=== PATIENT | male | born 1955 | race Caucasian/White ===

== ENCOUNTER 2021-11-28 07:47 | Inpatient (IN) ==
[2021-11-28] MEDS ORDERED: levoFLOXacin 500 MG/100 ML 500 MG/100 ML BAG IVPB ONE (08:10)
[2021-11-28] MEDS ORDERED: Ringers Solution, Lactated 1,000 ML IVC SCH (08:15)
[2021-11-28] MEDS ORDERED: Albuterol 2.5 MG/3 ML NEBULIZER IH PRN (08:17)
[2021-11-28] MEDS ORDERED: Ondansetron 4 MG/2 ML VIAL IVP PRN ×2 (08:17→15:16)
[2021-11-28] MEDS ORDERED: Albuterol 2.5 MG/3 ML NEBULIZER IH ONE (08:17)
[2021-11-28 08:58] LABS: Prothrombin Time 11.3 Seconds (9.4-12.1)
[2021-11-28] MEDS ORDERED: 0.9 % Sodium Chloride 500 ML ONE (09:42)
[2021-11-28] MEDS ORDERED: Lidocaine/EPI 1:100k 1% 50 ML VIAL ONE (09:42)
[2021-11-28] MEDS ORDERED: *HR* FentaNYL (PF) 100 MCG/2 ML VIAL IVP ONE (09:58)
[2021-11-28] MEDS ORDERED: *HR* Midazolam HCl 2 MG/2 ML VIAL IVP ONE (09:58)
[2021-11-28] MEDS ORDERED: Isovue-300 50ML VIAL IVP ONE (10:22)
[2021-11-28] MEDS ORDERED: *HR* Propofol 200 MG/20 ML VIAL IVP ONE (12:02)
[2021-11-28] MEDS ORDERED: *HR* FentaNYL (PF) 100 MCG/2 ML VIAL ONE ×2 (12:02→13:30)
[2021-11-28] MEDS ORDERED: Ondansetron 4 MG/2 ML VIAL ONE (12:05)
[2021-11-28] MEDS ORDERED: Lidocaine HCL 4 ML Topical Solution (Laryng-O-Jet Kit Sterile Pak) TP ONE (12:05)
[2021-11-28] MEDS ORDERED: *HR* Rocuronium Bromide 50 MG/5 ML VIAL ONE (12:05)
[2021-11-28] MEDS ORDERED: Lidocaine -MPF 2% 2 ML VIAL ONE (12:05)
[2021-11-28] MEDS ORDERED: Ketorolac 30 MG/ML VIAL ONE (13:49)
[2021-11-28] MEDS ORDERED: Acetaminophen IV 0 MG/0 ML BAG IVPB ONE (13:49)
[2021-11-28] MEDS: *HR* HYDROmorphone PF 0.5 MG/0.5 ML SYRINGE IVP PRN ×2 (14:10→14:19)
[2021-11-28] MEDS ORDERED: *HR* HYDROmorphone (PF) 1 MG/ML SYRINGE ONE (14:30)
[2021-11-28] MEDS: *HR* HYDROmorphone (PF) 1 MG/ML SYRINGE IVP PRN ×2 (14:31→14:36)
[2021-11-28] MEDS ORDERED: Naloxone 0.4 MG/ML INJ IVP PRN (15:16)
[2021-11-28] MEDS ORDERED: *HR* HYDROcodone/Acet 5/325 mg TABLET PO PRN (15:16)
[2021-11-28] MEDS: *HR* OxyCODONE Immed Rel 5 MG TABLET PO PRN (18:23)
[2021-11-28] MEDS: risperiDONE 1 MG TABLET PO SCH (21:58)
[2021-11-29] MEDS: *HR* OxyCODONE Immed Rel 5 MG TABLET PO PRN (03:57)
[2021-11-29 08:03] LABS: Basophils % 0.1 %; Hematocrit 33.8 % (37.5-50.1); Hemoglobin 11.5 g/dL (12.9-16.9); Immature Granulocytes % 0.6 % (0-4); Lymphocytes # 1.4 K/mcL (0.6-4.6); Lymphocytes % 6.3 %; Mean Corpuscular Hemoglobin 32.8 pg (28.0-33.3); Mean Corpuscular Volume 96.3 fL (83.0-100.0); Mean Platelet Volume 10.9 fL (9.4-12.4); Monocytes # 1.5 K/mcL (0.0-1.3); Neutrophils # 18.9 K/mcL (1.6-8.9); Platelet Count 291 K/mcL (140-400); Red Blood Count 3.51 M/mcL (4.19-5.50); Red Cell Distribution Width 12.7 % (11.5-14.5); White Blood Count 21.9 K/mcL (4.3-11.1)
[2021-11-29] MEDS: Fluticasone Propionate Nasal 50 MCG/SPRAY BOTTLE NS SCH (08:12)
[2021-11-29] MEDS: risperiDONE 1 MG TABLET PO SCH ×2 (08:12→20:43)
[2021-11-29] MEDS ORDERED: 0.9 % Sodium Chloride 1,000 ML ONE (08:49)
[2021-11-29] MEDS ORDERED: Loratadine 10 MG TABLET PO SCH (09:00)
[2021-11-29 09:36] LABS: Hematocrit 30.4 % (37.5-50.1); Hemoglobin 10.2 g/dL (12.9-16.9); Mean Corpuscular HGB Conc 33.6 g/dL (31.6-35.5); Mean Corpuscular Hemoglobin 32.5 pg (28.0-33.3); Mean Corpuscular Volume 96.8 fL (83.0-100.0); Mean Platelet Volume 11.2 fL (9.4-12.4); Platelet Count 319 K/mcL (140-400); Red Blood Count 3.14 M/mcL (4.19-5.50); Red Cell Distribution Width 12.9 % (11.5-14.5); White Blood Count 24.3 K/mcL (4.3-11.1)
[2021-11-29 10:06] LABS: Alanine Aminotransferase 22 Units/L (7-52); Albumin 3.5 g/dL (3.5-5.7); Albumin/Globulin Ratio 1.6 (1.1-2.2); Alkaline Phosphatase 88 Units/L (34-104); Aspartate Amino Transferase 25 Units/L (13-39); BUN/Creatinine Ratio 13 (6-26); Bilirubin,Total 0.5 mg/dL (0.3-1.0); Blood Urea Nitrogen 15 mg/dL (8-23); Calcium 8.5 mg/dL (8.6-10.3); Carbon Dioxide 26 mEq/L (23-29); Chloride 102 mEq/L (98-107); Globulin 2.2 g/dL (2.4-3.5); Glucose 105 mg/dL (70-105); Osmolality,Calculated 285 (280-300); Potassium 4.2 mEq/L (3.5-5.1); Sodium 137 mEq/L (136-145); Total Protein 5.7 g/dL (6.4-8.9); eGFR For African Americans > 60 (> 60); eGFR For Non-African Americans > 60 (> 60)
[2021-11-29] MEDS ORDERED: Isovue-370 500 ML BOTTLE IVP ONE (10:25)
[2021-11-29 11:16] LABS: Basophils % 0.1 %; Immature Granulocytes % 0.6 % (0-4); Red Cell Distribution Width 12.9 % (11.5-14.5)
[2021-11-29 11:18] LABS: Hematocrit 26.9 % (37.5-50.1); Hemoglobin 8.7 g/dL (12.9-16.9); Lymphocytes # 2.7 K/mcL (0.6-4.6); Lymphocytes % 9.8 %; Mean Corpuscular HGB Conc 32.3 g/dL (31.6-35.5); Mean Corpuscular Hemoglobin 32.5 pg (28.0-33.3); Mean Corpuscular Volume 100.4 fL (83.0-100.0); Monocytes # 2.2 K/mcL (0.0-1.3); Platelet Count 254 K/mcL (140-400); Red Blood Count 2.68 M/mcL (4.19-5.50); Segmented Neutrophils % 81.5 %; White Blood Count 27.4 K/mcL (4.3-11.1)
[2021-11-29 11:38] LABS: Neutrophils # 22.3 K/mcL (1.6-8.9)
[2021-11-29 11:42] LABS: Platelet Estimate Normal (Normal)
[2021-11-29 11:43] LABS: Alanine Aminotransferase 17 Units/L (7-52); Albumin 2.8 g/dL (3.5-5.7); Albumin/Globulin Ratio 1.6 (1.1-2.2); Alkaline Phosphatase 71 Units/L (34-104); Aspartate Amino Transferase 18 Units/L (13-39); BUN/Creatinine Ratio 11 (6-26); Bilirubin,Direct 0.1 mg/dL (0.0-0.2); Bilirubin,Indirect 0.4 mg/dL (0.0-1.0); Bilirubin,Total 0.5 mg/dL (0.3-1.0); Blood Urea Nitrogen 17 mg/dL (8-23); Calcium 7.4 mg/dL (8.6-10.3); Carbon Dioxide 15 mEq/L (23-29); Chloride 107 mEq/L (98-107); Creatine Kinase 90 Units/L (30-223); Globulin 1.8 g/dL (2.4-3.5); Glucose 218 mg/dL (70-105); Magnesium 1.6 mg/dL (1.6-2.6); Osmolality,Calculated 294 (280-300); Phosphorous 4.1 mg/dL (2.7-4.5); Potassium 3.8 mEq/L (3.5-5.1); Sodium 138 mEq/L (136-145); Total Protein 4.6 g/dL (6.4-8.9); Troponin I < 0.03 ng/mL (< 0.04); eGFR For African Americans 52 (> 60); eGFR For Non-African Americans 43 (> 60)
[2021-11-29] MEDS ORDERED: *HR* HYDROcodone/Acet 5/325 mg TABLET PO PRN (11:47)
[2021-11-29] MEDS ORDERED: *HR* OxyCODONE Immed Rel 5 MG TABLET PO PRN (11:50)
[2021-11-29] MEDS ORDERED: *HR* LORazepam 2 MG/ML VIAL IVP ONE (11:51)
[2021-11-29] MEDS ORDERED: 0.9 % Sodium Chloride 500 ML IVC ONE (11:52)
[2021-11-29] MEDS: Acetaminophen IV 1,000 MG/100 ML BAG IVPB SCH ×2 (13:54→17:34)
[2021-11-29] MEDS: cefTRIAXone 2,000 MG in 0.9 % Sodium Chloride 20 ML IVP SCH (13:55)
[2021-11-29 14:40] LABS: Hematocrit 26.9 % (37.5-50.1); Hemoglobin 9.1 g/dL (12.9-16.9)
[2021-11-29] MEDS ORDERED: 0.9 % Sodium Chloride 500 ML IVC SCH (15:00)
[2021-11-29] MEDS: 0.9 % Sodium Chloride 1,000 ML IVC SCH (15:10)
[2021-11-29] MEDS: MetroNIDAZOLE 500 MG/100 ML 500 MG/100 ML BAG IVPB SCH (16:23)
[2021-11-29] MEDS: Pantoprazole 40 MG VIAL IVP SCH (17:34)
[2021-11-29 23:58] LABS: Hematocrit 22.8 % (37.5-50.1)
[2021-11-30 00:13] LABS: Hemoglobin 7.5 g/dL (12.9-16.9)
[2021-11-30] MEDS: 0.9 % Sodium Chloride 1,000 ML IVC SCH ×4 (00:48→23:08)
[2021-11-30] MEDS: MetroNIDAZOLE 500 MG/100 ML 500 MG/100 ML BAG IVPB SCH ×2 (00:50→10:17)
[2021-11-30] MEDS: Acetaminophen IV 1,000 MG/100 ML BAG IVPB SCH ×3 (02:00→11:56)
[2021-11-30 05:54] LABS: Basophils % 0.1 %; Hematocrit 20.9 % (37.5-50.1); Hemoglobin 6.9 g/dL (12.9-16.9); Immature Granulocytes % 0.4 % (0-4); Lymphocytes # 2.3 K/mcL (0.6-4.6); Lymphocytes % 16.1 %; Mean Corpuscular Hemoglobin 31.8 pg (28.0-33.3); Mean Corpuscular Volume 96.3 fL (83.0-100.0); Mean Platelet Volume 11.2 fL (9.4-12.4); Monocytes % 7.1 %; Neutrophils # 10.9 K/mcL (1.6-8.9); Platelet Count 212 K/mcL (140-400); Red Blood Count 2.17 M/mcL (4.19-5.50); Red Cell Distribution Width 12.9 % (11.5-14.5); Segmented Neutrophils % 76.3 %; White Blood Count 14.3 K/mcL (4.3-11.1)
[2021-11-30 06:26] LABS: BUN/Creatinine Ratio 13 (6-26); Blood Urea Nitrogen 14 mg/dL (8-23); Calcium 7.5 mg/dL (8.6-10.3); Carbon Dioxide 24 mEq/L (23-29); Chloride 109 mEq/L (98-107); Glucose 95 mg/dL (70-105); Osmolality,Calculated 290 (280-300); Potassium 3.9 mEq/L (3.5-5.1); Sodium 140 mEq/L (136-145); eGFR For African Americans > 60 (> 60); eGFR For Non-African Americans > 60 (> 60)
[2021-11-30] MEDS: Pantoprazole 40 MG VIAL IVP SCH (06:37)
[2021-11-30] MEDS: Fluticasone Propionate Nasal 50 MCG/SPRAY BOTTLE NS SCH (09:00)
[2021-11-30] MEDS: risperiDONE 1 MG TABLET PO SCH ×2 (09:27→20:39)
[2021-11-30] MEDS: cefTRIAXone 2,000 MG in 0.9 % Sodium Chloride 20 ML IVP SCH (10:17)
[2021-11-30] MEDS ORDERED: 0.9 % Sodium Chloride 250 ML ONE (11:20)
[2021-11-30] MEDS ORDERED: Lidocaine -MPF 2% 2 ML VIAL ONE (13:44)
[2021-11-30] MEDS ORDERED: *HR* Propofol 200 MG/20 ML VIAL IVP ONE (13:44)
[2021-11-30] MEDS ORDERED: *HR* HYDROcodone/Acet 5/325 mg TABLET PO PRN (14:18)
[2021-11-30 20:01] LABS: Hematocrit 22.4 % (37.5-50.1); Hemoglobin 7.6 g/dL (12.9-16.9)
[2021-11-30] MEDS: traZODone 50 MG TABLET PO SCH (20:51)
[2021-11-30] MEDS: Melatonin 3 MG TABLET PO PRN (20:51)
[2021-12-01 02:47] LABS: Basophils % 0.1 %; Hematocrit 20.3 % (37.5-50.1); Hemoglobin 6.8 g/dL (12.9-16.9); Immature Granulocytes % 0.4 % (0-4); Lymphocytes # 1.2 K/mcL (0.6-4.6); Lymphocytes % 8.7 %; Mean Corpuscular HGB Conc 33.5 g/dL (31.6-35.5); Mean Corpuscular Hemoglobin 31.3 pg (28.0-33.3); Mean Corpuscular Volume 93.5 fL (83.0-100.0); Mean Platelet Volume 10.9 fL (9.4-12.4); Monocytes # 1.1 K/mcL (0.0-1.3); Monocytes % 7.6 %; Neutrophils # 11.6 K/mcL (1.6-8.9); Platelet Count 183 K/mcL (140-400); Red Blood Count 2.17 M/mcL (4.19-5.50); Red Cell Distribution Width 13.5 % (11.5-14.5); Segmented Neutrophils % 83.2 %
[2021-12-01 03:06] LABS: BUN/Creatinine Ratio 14 (6-26); Blood Urea Nitrogen 13 mg/dL (8-23); Calcium 7.7 mg/dL (8.6-10.3); Carbon Dioxide 25 mEq/L (23-29); Chloride 106 mEq/L (98-107); Glucose 108 mg/dL (70-105); Osmolality,Calculated 287 (280-300); Potassium 3.2 mEq/L (3.5-5.1); Sodium 138 mEq/L (136-145); eGFR For African Americans > 60 (> 60); eGFR For Non-African Americans > 60 (> 60)
[2021-12-01 05:14] LABS: Hematocrit 20.4 % (37.5-50.1); Hemoglobin 6.8 g/dL (12.9-16.9)
[2021-12-01] MEDS: risperiDONE 1 MG TABLET PO SCH ×2 (07:35→20:16)
[2021-12-01] MEDS: 0.9 % Sodium Chloride 1,000 ML IVC SCH (07:35)
[2021-12-01] MEDS: cefTRIAXone 2,000 MG in 0.9 % Sodium Chloride 20 ML IVP SCH (07:36)
[2021-12-01] MEDS ORDERED: 0.9 % Sodium Chloride 250 ML IVC SCH (08:00)
[2021-12-01] MEDS ORDERED: Isovue-370 500 ML BOTTLE IVP ONE (08:47)
[2021-12-01] MEDS ORDERED: 0.9 % Sodium Chloride 500 ML ONE (09:22)
[2021-12-01] MEDS ORDERED: Heparin 1,000 UNITS/500 mL 500 ML ONE (09:22)
[2021-12-01] MEDS ORDERED: Lidocaine/EPI 1:100k 1% 50 ML VIAL ONE (09:23)
[2021-12-01] MEDS ORDERED: *HR* FentaNYL (PF) 100 MCG/2 ML VIAL IVP ONE (09:34)
[2021-12-01] MEDS ORDERED: *HR* Midazolam HCl 2 MG/2 ML VIAL IVP ONE (09:34)
[2021-12-01] MEDS ORDERED: 0.9 % Sodium Chloride 250 ML ONE (09:40)
[2021-12-01] MEDS ORDERED: Isovue-300 50ML VIAL IVP ONE ×2 (10:10→10:23)
[2021-12-01] MEDS: Fluticasone Propionate Nasal 50 MCG/SPRAY BOTTLE NS SCH (11:37)
[2021-12-01] MEDS: Venlafaxine XR (24 HR) 150 MG CAP.ER.24H PO SCH (11:40)
[2021-12-01] MEDS ORDERED: Acetaminophen 325 MG TABLET PO PRN (12:06)
[2021-12-01] MEDS ORDERED: 0.9 % Sodium Chloride 1,000 ML IVC SCH (13:15)
[2021-12-01] MEDS: traZODone 50 MG TABLET PO SCH (20:15)
[2021-12-01] MEDS: Melatonin 3 MG TABLET PO PRN (20:16)
[2021-12-02 03:35] LABS: Basophils % 0.2 %; Eosinophils % 0.1 %; Hematocrit 21.4 % (37.5-50.1); Hemoglobin 7.4 g/dL (12.9-16.9); Immature Granulocytes % 0.4 % (0-4); Lymphocytes # 1.9 K/mcL (0.6-4.6); Lymphocytes % 17.3 %; Mean Corpuscular HGB Conc 34.6 g/dL (31.6-35.5); Mean Corpuscular Hemoglobin 32.2 pg (28.0-33.3); Mean Platelet Volume 11.3 fL (9.4-12.4); Monocytes # 0.7 K/mcL (0.0-1.3); Monocytes % 6.6 %; Neutrophils # 8.4 K/mcL (1.6-8.9); Platelet Count 180 K/mcL (140-400); Red Cell Distribution Width 14.6 % (11.5-14.5); Segmented Neutrophils % 75.4 %; White Blood Count 11.2 K/mcL (4.3-11.1)
[2021-12-02 03:43] LABS: BUN/Creatinine Ratio 11 (6-26); Blood Urea Nitrogen 9 mg/dL (8-23); Calcium 7.8 mg/dL (8.6-10.3); Carbon Dioxide 26 mEq/L (23-29); Chloride 105 mEq/L (98-107); Glucose 104 mg/dL (70-105); Osmolality,Calculated 283 (280-300); Potassium 3.3 mEq/L (3.5-5.1); Sodium 137 mEq/L (136-145); eGFR For African Americans > 60 (> 60); eGFR For Non-African Americans > 60 (> 60)
[2021-12-02] MEDS: risperiDONE 1 MG TABLET PO SCH (07:14)
[2021-12-02] MEDS: Venlafaxine XR (24 HR) 150 MG CAP.ER.24H PO SCH (07:14)
[2021-12-02] MEDS: cefTRIAXone 2,000 MG in 0.9 % Sodium Chloride 20 ML IVP SCH (07:15)
[2021-12-02] MEDS: Fluticasone Propionate Nasal 50 MCG/SPRAY BOTTLE NS SCH (07:26)
[2021-12-02 10:18] LABS: Calculi Mass 237 mg
[2021-12-02] MEDS ORDERED: Acetaminophen 325 MG TABLET PO PRN (10:55)
[2021-12-02 12:16] VITALS: BP 113/59; PULSE 77; TEMP 98.5; O2SAT 98
[2021-12-02 12:50] LABS: Hematocrit 23.7 % (37.5-50.1); Hemoglobin 7.8 g/dL (12.9-16.9)
== END 2021-12-02 14:40 | disposition home or self-care (01) | DRG 659 ==
LOC: 3ANU 07:47 → SAMDAY 07:47 → 3ANU 15:15 → SUATTDRO 11-29 10:43 → 2NENU 11-29 11:42
PROVIDERS: ADMIT Urology; ATTEND Student in an Organized Health Care Education/Training Program